=== PATIENT | female | born 1940 | race Caucasian/White ===

== ENCOUNTER → 2019-11-19 14:00 | Outpatient (BNVA) | payer MEDICARE, SELFPAY | PROVIDERS: Family Provider Nurse Practitioner; PCP Nurse Practitioner; Visit Provider Nurse Practitioner | DX: I10 Essential (primary) hypertension (principal); E78.2 Mixed hyperlipidemia | CPT/HCPCS: 80053; 80061; 81000; 82607; 85025 ==

== ENCOUNTER → 2019-12-01 13:08 | Outpatient (BNVA) | payer MEDICARE, SELFPAY | PROVIDERS: Family Provider Nurse Practitioner; PCP Nurse Practitioner; Visit Provider Nurse Practitioner | DX: R73.9 Hyperglycemia, unspecified (principal) | CPT/HCPCS: 83036 ==

== ENCOUNTER → 2020-03-17 08:47 | Outpatient (BNVA) | payer MEDICARE, SELFPAY | PROVIDERS: Family Provider Nurse Practitioner; PCP Nurse Practitioner; Visit Provider Nurse Practitioner | DX: E78.2 Mixed hyperlipidemia (principal); I10 Essential (primary) hypertension | CPT/HCPCS: 80053; 80061; 85025 ==

== ENCOUNTER → 2021-02-02 10:54 | Outpatient (BNVA) | payer MEDICARE, SELFPAY | PROVIDERS: Family Provider Nurse Practitioner; PCP Nurse Practitioner; Visit Provider Nurse Practitioner | DX: M54.2 Cervicalgia (principal); M54.9 Dorsalgia, unspecified; M25.552 Pain in left hip; I10 Essential (primary) hypertension; M47.812 Spondylosis without myelopathy or radiculopathy, cervical region; M16.12 Unilateral primary osteoarthritis, left hip; Z98.1 Arthrodesis status; M81.0 Age-related osteoporosis without current pathological fracture; M47.814 Spondylosis without myelopathy or radiculopathy, thoracic region | CPT/HCPCS: 72040; 72072; 72100; 73502 ==

== ENCOUNTER → 2021-02-09 10:30 | Outpatient (BNVA) | payer MEDICARE, SELFPAY | PROVIDERS: Family Provider Nurse Practitioner; PCP Nurse Practitioner; Visit Provider Nurse Practitioner | DX: E55.9 Vitamin D deficiency, unspecified (principal); I10 Essential (primary) hypertension | CPT/HCPCS: 80053; 80061; 82306; 82607; 84443; 85025 ==

== ENCOUNTER → 2022-02-01 10:27 | Outpatient (BNVA) | payer BC, SELFPAY | PROVIDERS: Family Provider Nurse Practitioner; PCP Nurse Practitioner; Visit Provider Nurse Practitioner | DX: E78.2 Mixed hyperlipidemia (principal); I10 Essential (primary) hypertension | CPT/HCPCS: 80053; 80061; 84443 ==

== ENCOUNTER → 2022-09-26 11:07 | Outpatient (BNVA) | payer MEDICARE, SELFPAY | PROVIDERS: Family Provider Nurse Practitioner; PCP Nurse Practitioner; Visit Provider Nurse Practitioner | DX: I10 Essential (primary) hypertension (principal); E55.9 Vitamin D deficiency, unspecified; R73.9 Hyperglycemia, unspecified | CPT/HCPCS: 80053; 80061; 82306; 83036; 85025 ==

== ENCOUNTER 2022-10-18 10:33 | Outpatient (CLI) | payer MEDICARE, SELFPAY ==
--- NOTE | 2022-10-18 11:00 | MR_ITS ---
WS: [id number] MRI HEAD WITHOUT CONTRAST TECHNIQUE: Sagittal T1, T2 axial, T2 axial FLAIR, axial and coronal T1 images, axial susceptibility w eighted imaging, axial diffusion weighted images, and coronal T2 images were obtained. CLINICAL INFORMATION: G43.009 - Migraine without aura, not intractable, without... COMPARISON: None. FINDINGS: No evidence of restricted diffusion to suggest acute ischemia. Ventricular system and basal cisterns are patent. Mild small vessel changes. Mild parenchymal volume loss. Normal posterior fossa. Normal v ascular flow voids at the skull base. No extra-axial fluid collections. No evidence of mass or mass e ffect. Paranasal sinuses and mastoid air cells well aerated. Normal posterior nasopharynx and parapha ryngeal fat. No hemosiderin on the susceptibly weighted images. Mild symmetric atrophy temporal lobes and hippocampal formations. MR/MR head wo con* [id number] IMPRESSION: 1. No evidence of restricted diffusion to suggest acute ischemia. 2. Mild small vessel changes. Mild parenchymal volume loss. 3. No hemosiderin on the susceptibly weighted images. 4. Mild symmetric atrophy temporal lobes and hippocampal formations. 5. No other suspicious findings.
== END 2022-10-18 10:34 | disposition home or self-care (01) ==
LOC: RAD 10:38
PROVIDERS: Family Provider Nurse Practitioner; PCP Nurse Practitioner; Visit Provider Nurse Practitioner
DX: G43.009 Migraine without aura, not intractable, without status migrainosus (principal)
CPT/HCPCS: 70551

== ENCOUNTER → 2023-04-03 12:12 | Outpatient (BNVA) | payer MEDICARE, SELFPAY | PROVIDERS: Family Provider Nurse Practitioner; PCP Nurse Practitioner; Visit Provider Nurse Practitioner | DX: E78.2 Mixed hyperlipidemia (principal); E55.9 Vitamin D deficiency, unspecified; I10 Essential (primary) hypertension; Z23 Encounter for immunization; E78.1 Pure hyperglyceridemia; R05.9 Cough, unspecified | CPT/HCPCS: 80053; 80061; 82306; 84443 ==

== ENCOUNTER → 2023-07-19 09:59 | Outpatient (BNVA) | payer MEDICARE, SELFPAY | PROVIDERS: Family Provider Nurse Practitioner; PCP Nurse Practitioner; Visit Provider Nurse Practitioner Family | DX: M17.11 Unilateral primary osteoarthritis, right knee (principal); M25.561 Pain in right knee | CPT/HCPCS: 73562 ==

== ENCOUNTER → 2023-08-13 11:00 | Outpatient (BNVA) | payer MEDICARE, SELFPAY | PROVIDERS: Family Provider Nurse Practitioner; PCP Nurse Practitioner; Referring Provider Nurse Practitioner Family; Visit Provider Specialist | DX: M25.561 Pain in right knee; G89.29 Other chronic pain; M17.0 Bilateral primary osteoarthritis of knee | CPT/HCPCS: 73560; 73565; 99204 ==

== ENCOUNTER 2023-08-27 06:00 | Outpatient (RCR) | payer MEDICARE, SELFPAY | END 2023-09-16 23:59 | disposition home or self-care (01) | LOC: APT 06:00 | PROVIDERS: Visit Provider Specialist | DX: M25.561 Pain in right knee (principal) | CPT/HCPCS: 97161 ==

== ENCOUNTER → 2023-09-18 11:59 | Outpatient (BNVA) | payer MEDICARE, SELFPAY | PROVIDERS: PCP Nurse Practitioner; Visit Provider Nurse Practitioner | DX: E55.9 Vitamin D deficiency, unspecified (principal); I10 Essential (primary) hypertension; R05.9 Cough, unspecified; E78.1 Pure hyperglyceridemia | CPT/HCPCS: 80053; 80061; 82306; 82607; 84443 ==

== ENCOUNTER 2024-02-10 09:43 | Emergency (ER) | payer MEDICARE, SELFPAY ==
[2024-02-10 09:44] VITALS: BP 170/81; PULSE 62; RESP 16; TEMP 36.6; O2SAT 93; BMI 21.9
--- NOTE | 2024-02-10 09:55 | XRR_ITS ---
PROCEDURE INFORMATION: Exam: XR Right Hip Exam date and time: 02/10/2024 10:02 AM Age: 83 years old Clinical indication: Injury or trauma; Fall; Blunt trauma (contusions or hematomas); Right; Hip; Prior surgery; Surgery date: <1 month; Surgery type: Pelvis TECHNIQUE: Imaging protocol: Radiologic exam of the right hip. Views: 1 view hip with pelvis when performed. COMPARISON: CR XR lumbar spine 2-3V* [id number] 02/02/2021 11:03 AM FINDINGS: Bones/joints: Osteopenia. No evidence of fracture dislocation. Degenerative change. Soft tissues: Unremarkable. XR/XR hip RT 2-3V wo/w pel* [id number] IMPRESSION: Osteopenia. No definitive fracture or dislocation
--- NOTE | 2024-02-10 10:11 | CTR_ITS ---
PROCEDURE INFORMATION: Exam: CT Pelvis Without Contrast, Skeleton Exam date and time: 02/10/2024 10:19 AM Age: 83 years old Clinical indication: Injury or trauma; Fall; Blunt trauma (contusions or hematomas); Right; Hip; Prior surgery; Surgery date: 6+ months; Surgery type: Sacral; Additional info: R hip/pelvis pain after fall TECHNIQUE: Imaging protocol: Computed tomography of the pelvis without contrast. Exam focused on the skeleton. Radiation optimization: All CT scans at this facility use at least one of these dose optimization techniques: automated exposure control; mA and/or kV adjustment per patient size (includes targeted exams where dose is matched to clinical indication); or iterative reconstruction. COMPARISON: CR (PELVIS, ) 02/10/2024 10:02 AM RADIATION DOSE METRICS: Total DLP (mGy-cm): 289.13 FINDINGS: Bones/joints: Postop fusion changes of the lumbar spine. Osteopenia. Soft tissues: Unremarkable. CT/CT pelvis wo con [id number] IMPRESSION: Osteopenia. No evidence of fracture. Postop fusion change of the lumbar spine
--- NOTE | 2024-02-10 10:27 | ED_ITS ---
HPI - Extremity Problem 2 General: Chief complaint: Extremity Injury, Lower Stated complaint: right hip pain s/p fall Time Seen by Provider: 02/10/24 09:55 History of Present Illness: 83-year-old female presents emergency ro om via EMS. She has severe right hip pain. She fell 9 days ago was evaluated at a different emergency room had plain films there is no evidence of x-ray and she was discharged home. She left that your wheelchair has been using a walker states is unable to bear full weight and has severe pain. It is worse today. Progressively more more difficult time getting around since the fall. No other falls since that time. She did not strike her head at that time and was conscious denies any other injuries no previous surgeries on the right hip Associated symptoms: Deny chest pain, fever(s) or rash Related Data Previous Rx's Medication Instructions Recorded celecoxib 200 mg capsule (Celebrex) 200 mg PO DAILY #30 caps 08/13/23 ergocalciferol (vitamin D2) 1,250 1,250 mcg PO .weekly #4 caps 09/18/23 mcg (50,000 unit) capsule furosemide 20 mg tablet (Lasix) 20 mg PO QAM #90 tabs 09/18/23 guaifenesin 100 mg/5 mL oral 200 mg (10 mL) PO .at bedtime #473 09/18/23 liquid (Amy-Tussin) mL icosapent ethyl 1 gram capsule 2 g (2 x 1 gram) PO BID #120 caps 09/18/23 (Vascepa) magnesium oxide 400 mg (241.3 mg 400 mg PO BID #180 tabs 09/18/23 magnesium) tablet potassium chloride 10 mEq 10 meq PO DAILY #90 tabs 09/18/23 tablet,extended release propranolol 80 mg tablet 80 mg PO BID #180 tabs 09/18/23 hydrocodone 5 mg-acetaminophen 325 1 tab PO Q6H PRN pain #15 tabs 02/10/24 mg tablet Allergies Allergy/AdvReac Type Severity Reaction Status Date / Time No Known Allergies Allergy Verified 02/10/24 09:52 Review of Systems 2 Const: Denies: fever(s) or chills Card: Denies: chest pain Resp: Denies: dyspnea GI: Denies: abdominal pain : Denies: dysuria, urinary frequency or urinary urgency Musc: Reports: joint pain; Denies: neck pain or back pain Skin/Breast: Denies: rash PFSH ED 2 PFSH: Medical History Migraine headache without aura DDD (degenerative disc disease) Mixed hyperlipidemia Essential (primary) hypertension Vitamin D insufficiency Surgical History History of hysterectomy History of back surgery x 2 1979's with rods Family History Other Diabetes Liver disease Social History Smoking and tobacco/nicotine status: light tobacco/nicotine user smokeless tobacco Smokeless tobacco user: snuff Smokeless tobacco details: 30 plus years Second hand smoke exposure: No Alcohol intake: never Substance/Drug Use: unknown Adopted: No Caregiver/support person: No Lives independently: Yes Household members: children Housing: House Marital status: / Number of children: 1 service: No Current occupational status: retired Pets and animals: Yes Do you think of yourself as: Straight/Heterosexual Current gender identity: Female Physical Exam 2 Const: GENERAL APPEARANCE: cooperative ORIENTATION/CONSCIOUSNESS: Yes awake, Yes oriented to person, Yes oriented to place and Yes oriented to time HENMT: COMMON NORMALS: normocephalic, atraumatic and hearing grossly normal bilaterally HEAD & SCALP: normocephalic and atraumatic Resp: COMMON NORMALS: normal respiratory effort, No retractions, No use of accessory muscles and clear to auscultation bilaterally AUSCULTATION: clear to auscultation bilaterally Cardio: COMMON NORMALS: regular rate, regular rhythm and No murmurs present (Cardio) RATE: regular rate RHYTHM: regular rhythm GI: COMMON NORMALS: Soft to palpation and No hepatosplenomegaly present A USCULTATION: Yes normoactive bowel sounds PALPATION: Yes Soft to palpation, No Tenderness to palpation present (GI), No Guarding due to palpation present (GI) and Yes No hepatosplenomegaly present Extremity: COMMON NORMALS: normal to inspection, capillary refill normal, no clubbing, cyanosis or edema, no calf tenderness and no pedal edema Neuro: SENSORIUM/ORIENTATION: Yes oriented to person, Yes oriented to place and Yes oriented to time Skin: COMMON NORMALS: no rashes or lesions noted GENERAL SKIN EXAM: no rashes or lesions noted Course 2 Vital Signs: Vital signs: Vital Signs Temperature 97.8 F 02/10/24 09:44 Pulse Rate 67 02/10/24 11:30 Respiratory Rate 16 02/10/24 09:44 Blood Pressure 128/65 02/10/24 11:30 Pulse Oximetry 94 02/10/24 11:30 Oxygen Delivery Me thod Room Air 02/10/24 11:30 MDM - Extremity (Nontraumatic) Medical Decision Making Patient has point tenderness in the posterior aspect of the hip joint. CT of the hip and pelvis did not show any acute fractures or Is actively flexes from abnormality. Recommended admission because she still cannot walk she lives alone although she does have family members that help her significantly at home. Patient family declined admission. They wish to leave. UA did not show any abnormalities remainder of the labs were not abnormal. Discussed with him again before leaving and I strongly recommended admitting him concerned about the high risk of her falling. They prefer to go home with pain medications and family members will help her. They are encouraged to return if she has further problems or changes her mind and wishes to reconsider the treatment plan. Will refer her to orthopedics as well. Plan for admission is further evaluation possible orthopedic consultation and MRI if felt appropriate patient and family declined. Just prior to leaving patient expressed she was having some back pain earlier when it asked her she specifically denied having back pain. We did logroll the patient onto her left side she is referring to the pain in the buttock with palpation along the lumbar thoracic spines and at the lumbosacral junction she denies any pain. Medical Records I reviewed the patient's medical records. Lab Data I reviewed the patient's lab results. 02/10/24 11:15 02/10/24 11:15 Radiology Impressions Hip/Pelvis X-Ray 02/10/24 09:55 IMPRESSION: Osteopenia. No definitive fracture or dislocation Pelvis CT 02/10/24 10:11 IMPRESSION: Osteopenia. No evidence of fracture. Postop fusion change of the lumbar spine Laboratory Results WBC 8.90 10^3/uL (3.29-11.43) 02/10/24 11:15 RBC 4.29 10^6/uL (3.85-5.65) 02/10/24 11:15 Hgb 13.50 g/dL (11.27-16.99) 02/10/24 11:15 Hct 40.9 % (36-47) 02/10/24 11:15 MCV 95.3 fl (85-98) 02/10/24 11:15 MCH 31.5 pg (27-33) 02/10/24 11:15 MCHC 33.0 g/dL (30-55) 02/10/24 11:15 RDW 12.6 % (12.1-15.1) 02/10/24 11:15 Plt Count 238 10^3/cmm (157-399) 02/10/24 11:15 MPV 10.9 fL (7.4-10.4) H 02/10/24 11:15 Neut % (Auto) 69.8 % 02/10/24 11:15 Lymph % (Auto) 20.1 % 02/10/24 11:15 [place] % (Auto) 8.4 % 02/10/24 11:15 Eos % (Auto) 1.0 % 02/10/24 11:15 Baso % (Auto) 0.3 % 02/10/24 11:15 Neut # (Auto) 6.20 10^3/uL (1.8-7.7) 02/10/24 11:15 Lymph # (Auto) 1.8 10^3/uL (0.8-4.8) 02/10/24 11:15 [place] # (Auto) 0.8 10^3/uL (0.2-0.9) 02/10/24 11:15 Eos # (Auto) 0.1 10^3/uL (0.0-0.8) 02/10/24 11:15 Baso # (Auto) 0.0 10^3/uL (0.0-0.1) 02/10/24 11:15 Nucleated RBC % (auto) 0 % 02/10/24 11:15 Nucleated RBCs # 0.0 /100WBC 02/10/24 11:15 Sodium 141 mmol/L (136-145) 02/10/24 11:15 Potassium 3.4 mmol/L (3.5-5.1) L 02/10/24 11:15 Chloride 102 mmol/L (98-107) 02/10/24 11:15 Carbon Dioxide 28 mmol/L (22-29) 02/10/24 11:15 Anion Gap 14.4 (5-19) 02/10/24 11:15 BUN 17 mg/dL (8-23) 02/10/24 11:15 Creatinine 1.1 mg/dL (0.5-0.9) H 02/10/24 11:15 GFR Calculation Not Reportable 02/10/24 11:15 Glucose 108 mg/dL (65-115) 02/10/24 11:15 Calculated Osmolality 294 mOsm/kg (285-295) 02/10/24 11:15 Calcium 8.8 mg/dL (8.5-10.5) 02/10/24 11:15 Total Bilirubin 0.6 mg/dL (0.15-1.2) 02/10/24 11:15 AST 19 U/L (0-32) 02/10/24 11:15 ALT 19 U/L (0-33) 02/10/24 11:15 Alkaline Phosphatase 98 U/L (35-105) 02/10/24 11:15 Total Protein 7.3 g/dL (6.6-8.7) 02/10/24 11:15 Albumin 4.1 g/dL (3.5-5.2) 02/10/24 11:15 Globulin 3.2 g/dL (1.3-4.6) 02/10/24 11:15 Urine Color Yellow (Yellow) 02/10/24 11:13 Urine Appearance Clear (CLEAR) 02/10/24 11:13 Urine pH 6.5 (5-7) 02/10/24 11:13 Ur Specific [place] 1.008 (1.005-1.030) 02/10/24 11:13 Urine Protein Negative (Negative) 02/10/24 11:13 Urine Glucose (UA) Negative (Normal) 02/10/24 11:13 Urine Ketones Negative (Negative) 02/10/24 11:13 Urine Blood Negative (Negative) 02/10/24 11:13 Urine Nitrate Negative (Negative) 02/10/24 11:13 Urine Bilirubin Negative (Negative) 02/10/24 11:13 Urine Urobilinogen 0.2 mg/dL (Negative) 08/25/24 11:13 Ur Leukocyte Esterase Negative (Negative) 02/10/24 11:13 Amorphous Sediment Not Reportable 02/10/24 11:13 All radiology interpretation(s) finalized by discharge Discharge Plan Discharge Patient Disposition: Home Clinical Impression: Acute pain of right hip Condition: Stable Prescriptions: New hydrocodone-acetaminophen 5-325 mg tablet 1 tab PO Q6H PRN (Reason: pain) Qty: 15 0RF No Action ergocalciferol (vitamin D2) 1,250 mcg (50,000 unit) capsule 1,250 mcg PO .weekly Qty: 4 2RF furosemide [Lasix] 20 mg tablet 20 mg PO QAM Qty: 90 1RF guaifenesin [Amy-Tussin] 100 mg/5 mL liquid 200 mg PO .at bedtime Qty: 473 1RF icosapent ethyl [Vascepa] 1 gram capsule 2 g PO BID Qty: 120 5RF magnesium oxide 400 mg (241.3 mg magnesium) tablet 400 mg PO BID Qty: 180 1RF potassium chloride 10 mEq tablet extended release 10 meq PO DAILY Qty: 90 1RF propranolol 80 mg tablet 80 mg PO BID Qty: 180 1RF celecoxib [Celebrex] 200 mg capsule 200 mg PO DAILY Qty: 30 1RF Discharge Orders: Discharge ED (Routine); Ordered 02/10/24 Ordered By: Alejandro Bonilla Referrals: Tamar Tse, [employer] [Primary Care Provider] - Discharge Diet: Usual diet Discharge Activity: Limit activity as instructed Patient Instructions: Opioid Safety, Pain Management Activity Restrictions/Additional Instructions: Thank you for choosing [facility] for your healthcare needs today. It is very important that you follow up as instructed or that you return to the Emergency Department should you have concerns or if your condition changes or worsens in any way. You are seen emergency room for right hip pain plain x-rays and CT of your hip did not show any acute fracture. We had recommended admission because you were still unable to walk. You decided you would prefer to go home. If you change your mind you are welcome to return and we can reevaluate and consider admission. Recommend you follow-up with your primary care provider within the next few days if this does not improve. Coding Level of Care Code ED [employer] Blocking Operator for Yuli Pierre
[2024-02-10 10:30] VITALS: BP 156/75; PULSE 63; O2SAT 95
[2024-02-10 11:30] VITALS: BP 128/65; PULSE 67; O2SAT 94
[2024-02-10 11:39] LABS: Basophils % 0.3 %; Eosinophils # 0.1 10^3/uL (0.0-0.8); Hematocrit 40.9 % (36-47); Lymphocytes # 1.8 10^3/uL (0.8-4.8); Lymphocytes % 20.1 %; Mean Corpuscular Hemoglobin 31.5 pg (27-33); Mean Corpuscular Volume 95.3 fl (85-98); Mean Platelet Volume 10.9 fL (7.4-10.4); Monocytes # 0.8 10^3/uL (0.2-0.9); Monocytes % 8.4 %; Neutrophils % 69.8 %; Nucleated Red Blood Cells % 0 %; Platelet Count 238 10^3/cmm (157-399); Red Blood Count 4.29 10^6/uL (3.85-5.65); Red Cell Distribution Width 12.6 % (12.1-15.1)
[2024-02-10 11:39] LABS: Charge for UA Resulting for Rev
[2024-02-10 11:43] LABS: Bilirubin Urine Negative (Negative); Blood Urine Negative (Negative); Glucose Urine UA Negative (Normal); Ketones Urine Negative (Negative); Leukocyte Esterase Urine Negative (Negative); Nitrate Urine Negative (Negative); Protein Urine Negative (Negative); Specific Gravity, Urine 1.008 (1.005-1.030); Urine Appearance Clear (CLEAR); Urine Color Yellow (Yellow); Urobilinogen Urine 0.2 mg/dL (Negative); pH Urine 6.5 (5-7)
[2024-02-10 11:48] LABS: Bacteria Urine None Seen /hpf; RBC Urine 0-2 /hpf (0-2); Squamous Epithelial Cell Urine 0-5 /hpf (0-5); WBC Urine 0-5 /hpf (0-5)
[2024-02-10 11:50] LABS: Alanine Aminotransferase 19 U/L (0-33); Albumin Level 4.1 g/dL (3.5-5.2); Alkaline Phosphatase 98 U/L (35-105); Anion Gap 14.4 (5-19); Aspartate Amino Transferase 19 U/L (0-32); Blood Urea Nitrogen 17 mg/dL (8-23); Calcium 8.8 mg/dL (8.5-10.5); Carbon Dioxide 28 mmol/L (22-29); Chloride 102 mmol/L (98-107); Globulin 3.2 g/dL (1.3-4.6); Glucose 108 mg/dL (65-115); Osmolality Calculated 294 mOsm/kg (285-295); Potassium 3.4 mmol/L (3.5-5.1); Sodium 141 mmol/L (136-145); Total Bilirubin 0.6 mg/dL (0.15-1.2); Total Protein 7.3 g/dL (6.6-8.7)
[2024-02-10 11:51] LABS: Creatinine Clr Calc Pharmacy 37.4797
[2024-02-10 11:57] LABS: Add Urine Culture? No; UA Slide Review UA Slide Review Perf
[2024-02-10] MEDS: HYDROcodone-acetaminophen 5-325 mg Tablet 1 TAB PO (12:04)
[2024-02-10 12:22] VITALS: BP 146/72; PULSE 70; RESP 16; O2SAT 95
--- NOTE | 2024-02-11 08:06 | DCPLANNER ---
messaged ortho for er f/u
== END 2024-02-10 12:24 | disposition home or self-care (01) ==
PROVIDERS: Emergency Provider Family Medicine; PCP Nurse Practitioner
DX: M25.551 Pain in right hip (principal); F17.220 Nicotine dependence, chewing tobacco, uncomplicated; E78.2 Mixed hyperlipidemia; I10 Essential (primary) hypertension
CPT/HCPCS: 36415; 72192; 73502; 80053; 81003; 81015; 85025; 99284

== ENCOUNTER → 2024-03-04 12:00 | Outpatient (BNVA) | payer MEDICARE, SELFPAY | PROVIDERS: PCP Nurse Practitioner; Visit Provider Nurse Practitioner | DX: E55.9 Vitamin D deficiency, unspecified (principal); I10 Essential (primary) hypertension | CPT/HCPCS: 80053; 82306; 84443; 85025 ==

== ENCOUNTER → 2024-03-10 11:02 | Outpatient (BNVA) | payer MEDICARE, SELFPAY | PROVIDERS: PCP Nurse Practitioner; Visit Provider Nurse Practitioner | DX: Z98.890 Other specified postprocedural states (principal); M54.9 Dorsalgia, unspecified; S29.9XXA Unspecified injury of thorax, initial encounter; M48.04 Spinal stenosis, thoracic region; M77.8 Other enthesopathies, not elsewhere classified; W19.XXXA Unspecified fall, initial encounter | CPT/HCPCS: 72072; 72100 ==

== ENCOUNTER → 2024-05-12 08:51 | Outpatient (BNVA) | payer MEDICARE, SELFPAY | PROVIDERS: PCP Nurse Practitioner; Visit Provider Nurse Practitioner | DX: R05.9 Cough, unspecified (principal); I70.0 Atherosclerosis of aorta | CPT/HCPCS: 71046 ==

== ENCOUNTER → 2025-02-12 11:01 | Outpatient (BNVA) | payer MEDICARE, SELFPAY | PROVIDERS: PCP Nurse Practitioner; Visit Provider Nurse Practitioner | DX: I10 Essential (primary) hypertension (principal); E78.2 Mixed hyperlipidemia; E55.9 Vitamin D deficiency, unspecified | CPT/HCPCS: 80053; 82306; 82607; 84443 ==